=== PATIENT | male | born 1965 | race Caucasian/White ===

== ENCOUNTER 2019-08-07 16:09 | Observation (INO) ==
[2019-08-07] MEDS ORDERED: PANTOprazole 40 MG TAB PO STA (16:22)
[2019-08-07] MEDS ORDERED: FAMOTIDINE 20MG IV PUSH 20 MG/5 ML SYR IV STA (16:22)
[2019-08-07] MEDS ORDERED: SODIUM CHLORIDE 0.9% 500 ML IV SCH (16:30)
--- NOTE | 2019-08-07 17:22 | XRay Report ---
SINGLE VIEW CHEST CLINICAL HISTORY: Generalized weakness. FINDINGS: An AP, portable, upright chest radiograph is obtained. No prior studies are available for c omparison at the time of dictation. The heart is enlarged. The pulmonary vasculature is noncongested . There is mild bibasilar scarring/atelectasis. No airspace consolidation or large pleural effusion i s identified. No pneumothorax is seen. The skeletal structures are osteopenic. The bony thorax is gaye ssly intact. IMPRESSION: Cardiomegaly with no acute cardiopulmonary abnormality. ACT 112: Negative or not required by law. Electronically signed by: Josef Hills M.D. 08/07/2019 5:20 PM
[2019-08-07 17:29] LABS: Hematocrit (blood only) 20.2 % (42-52); Hemoglobin 6.4 g/dL (14.0-18.0); Mean Corpuscular Hgb Conc 31.7 g/dL (32-36); Mean Corpuscular Volume 72.7 fL (80-100); Mean Platelet Volume 9.3 fL (7.4-10.4); Platelet Count 294 K/uL (130-400); RDW Coefficient of Variation 16.7 % (11.5-14.5); RDW Standard Deviation 44.6 fL (36.4-46.3); Red Blood Count 2.78 M/uL (4.7-6.1); White Blood Count 5.56 K/uL (4.8-10.8)
[2019-08-07 17:41] LABS: Partial Thromboplastin Ratio 0.8; Partial Thromboplastin Time 22.7 Seconds (21.0-31.0); Prothrombin Time 10.3 Seconds (9.0-12.0)
[2019-08-07 17:45] LABS: Alanine Aminotransferase 41 U/L (12-78); Albumin Level 4.4 gm/dl (3.4-5.0); Aspartate Aminotransferase 28 U/L (15-37); BUN Creatinine Ratio 11.1 (10-20); Blood Urea Nitrogen 13 mg/dl (7-18); Calcium 9.6 mg/dl (8.5-10.1); Carbon Dioxide 22 mmol/L (21-32); Chloride 105 mmol/L (98-107); Creatinine Clr Calc Pharmacy 88.5 ml/min; Est GFR (African American) 78.4; Est GFR (Non-African American) 67.7; Glucose 184 mg/dl (70-99); Lipase 284 U/L (73-393); Potassium 3.6 mmol/L (3.5-5.1); Sodium 136 mmol/L (136-145)
[2019-08-07] MEDS ORDERED: SODIUM CHLORIDE 0.9% 250 ML IV PRN (17:47)
[2019-08-07 17:48] LABS: Basophils # (auto) 0.04 K/uL (0-0.2); Basophils % (auto) 0.7 %; Eosinophils % (auto) 1.8 %; Lymphocytes # (auto) 0.92 K/uL (1.2-3.4); Lymphocytes % (auto) 16.5 %; Microcytosis Present; Monocytes % (auto) 7.2 %; Neutrophils % (auto) 73.8 %; Polychromasia 1+; Reticulocyte % 2.5 % (0.5-2.0); Reticulocytes # 0.07 10^6/uL (0.02-0.10)
[2019-08-07 17:50] LABS: Albumin Globulin Ratio 1.2 (0.9-2); Alkaline Phosphatase 72 U/L (45-117); Bilirubin,Total 0.4 mg/dl (0.2-1); Globulin 3.7 gm/dl (2.5-4.0); Total Protein 8.1 gm/dl (6.4-8.2); Troponin I < 0.015 ng/ml (0-0.045)
[2019-08-07] MEDS ORDERED: IOVERSOL 100ml IV PRN (18:00)
[2019-08-07 18:07] LABS: Appearance Urine Clear (Clear); Bilirubin Urine Negative (Negative); Blood Urine Negative (Negative); Color Urine Yellow; Glucose Urine UA Negative (Negative); Ketones Urine Negative (Negative); Leukocyte Esterase Urine Negative (Negative); Nitrite Urine Negative (Negative); Protein Urine Negative (Negative); Specific Gravity Urine 1.011 (1.000-1.030); Urobilinogen Urine Negative (Negative)
--- NOTE | 2019-08-07 18:26 | CT Scan Report ---
CT SCAN OF THE ABDOMEN AND PELVIS WITH IV CONTRAST CLINICAL HISTORY: GI bleeding. Anemia. Dyspnea. COMPARISON STUDY: No priors. TECHNIQUE: Following the IV administration of 94 cc of Optiray 320, CT scan of the abdomen and pelvi s is performed from the lung bases to the proximal femora. Images are reviewed in the axial, sagittal , and coronal planes. IV contrast was administered without complication. A dose lowering technique wa s utilized adhering to the principles of ALARA. CT DOSE: 1095.73 mGy.cm FINDINGS: Lung bases: The heart is normal in size and without pericardial effusion. A calcified granuloma seen at the right lung base. The lung bases are otherwise clear. Liver: The contrast-enhanced liver is enlarged measuring 19.3 cm in length. The liver demonstrates di ffusely diminished attenuation consistent with hepatic steatosis. Fatty sparing is seen adjacent to g allbladder fossa. There is no intrahepatic biliary ductal dilatation. The hepatic veins and portal ve ins are patent. Gallbladder: Unremarkable. Spleen: The spleen is mildly enlarged measuring 14.3 cm in length. Pancreas: Unremarkable. Adrenal glands: Unremarkable. Kidneys: The contrast enhanced kidneys are normal in size and without hydronephrosis. The kidneys enh ance symmetrically. A subcentimeter cortical hypodensity in the right lower pole likely represents a cyst but is too small for definitive characterization. Abdominal vasculature: The abdominal aorta is normal in course and caliber noting mild atheroscleroti c calcification. Bowel: There is mild colonic fecal retention. No bowel obstruction is seen. The appendix is well-vis ualized and normal. Peritoneum: There is no intraperitoneal free air or abdominal ascites. Lymphadenopathy: None. Pelvic viscera: The bladder, prostate, and seminal vesicles are normal as imaged. Skeletal structures: No lytic or blastic lesions are seen. There are healed right-sided rib fractures . IMPRESSION: 1. There are no acute infectious or inflammatory findings in the abdomen or pelvis. 2. Hepatomegaly and hepatic steatosis. 3. Splenomegaly. ACT 112: Negative or not required by law. Electronically signed by: Josef Hills M.D. 08/07/2019 6:25 PM
[2019-08-07] MEDS ORDERED: PANTOprazole 80 MG in DEXTROSE 5% 100 ML IV STA (18:37)
--- NOTE | 2019-08-07 19:04 | History & Physical Report ---
Date of Service August 07, 2019 Assessment & Plan (1) Anemia: (2) GI bleed: -Admit to [facility] with telemetry -Patient presenting by referral of PCP for evaluation of anemia -Patient reports 3-4 episodes of black stools about 2 weeks ago; no further since -In ED, Hgb found to be 6.4, heme positive stools -Mildly tachycardic however otherwise hemodynamically stable -Minimal NSAID use -Colonoscopy 10/2017: Sigmoid diverticulosis, transverse colon polyp with pathology showing tubovillous adenoma -one-year follow-up was recommended however patient did not complete due to transportation issues -Transfuse 2 unit PRBC -PPI bolus and drip -Case discussed with GI; plan for EGD tomorrow along with colonoscopy given history of high risk polyp (3) DM type 2 (diabetes mellitus, type 2): -Hgb A1c 7.0 08/01/19 -Hold metformin and utilize NovoLog per protocol while hospitalized (4) DVT prophylaxis: -SCDs due to GI bleeding History of Present Illness Chief Complaint: Sent by PCP for evaluation of anemia Primary Care Provider: Chepe Navas DO 54-year-old male who presents the ED by referral PCP for evaluation of anemia. Patient reports that 2 weeks ago, noted he was having heart palpitations and shortness of breath with minimal exertion. At that same time, he had 3-4 episodes of black stools. Stools were formed. No further episodes since then. Patient had outpatient labs drawn on 08/01 showing hemoglobin of 7.1. Patient was notified today and referred to the ED for further evaluation. Patient denies any abdominal pain, nausea, vomiting. No fevers or chills. A couple of weeks ago, he took 1 dose of indomethacin and 2 aspirin. Patient denies chest pain. Has had some lightheadedness but denies any syncopal event. He denies any urinary symptoms. In the ED, hemoglobin is found to be 6.4. Stools are heme positive. Patient is mildly tachycardic however otherwise hemodynamically stable. He was given IVF, IV famotidine, p.o. Protonix. Allergies Allergy/AdvReac Type Severity Reaction Status Date / Time bee venom protein (honey bee) Allergy Severe ANAPHYLAXIS Verified 08/07/19 16:46 Home Medications Home Medications Medication Instructions Recorded Confirmed Type gemfibrozil 600 mg PO BID 08/07/19 08/07/19 History indomethacin 50 mg PO TID PRN 08/07/19 08/07/19 History metformin 1,000 mg PO BID 08/07/19 08/07/19 History multivitamin 1 tab PO DAILY 08/07/19 08/07/19 History omeprazole 20 mg PO DAILY 08/07/19 08/07/19 History Past Med/Surg History Medical History DM type 2 (diabetes mellitus, type 2) GERD (gastroesophageal reflux disease) Gout Hyperlipidemia Surgical History Hx of colonoscopy 10/2017 -diverticulosis throughout sigmoid colon, polyp removed from transve rse colon with pathology showing tubovillous adenoma -one-year follow-up recommended Family History (Updated 08/07/19 @ 18:54 by DANILO Freeman) Father Heart disease Social History Preferred Language: Wolof Communication Ability: Effective 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 Beliefs That Will Affect Care: None Current Living Situation: Alone Other Information That Helps Us Care for You: No Feels Safe at Home: Yes Safety Concerns: Feels Safe At This Time Smoking Status: Current every day smoker Tobacco Type: smokeless tobacco ; Do You Dip or Chew Tobacco: Yes ; Second Hand Exposure: No ; Tobacco Cessation Education Requested by Patient: No Hx Alcohol Use: No Review of Systems Review of Systems: ROS per HPI, all other systems reviewed and negative Physical Exam Constitutional: WD/WN, vitals as above Eyes: PERRL, conjunctivae normal, anicteric sclerae ENMT: external ear and nose normal, oropharynx normal Respiratory: normal respiratory effort, lungs clear to auscultation Cardiovascular: Rate/Rhythm: regular rhythm and + tachycardic (Heart rate low 100s) Vessels: normal peripheral pulses Extremities: no edema Gastrointestinal (Abdomen): normal bowel sounds, soft, nontender, no hepatosplenomegaly Musculoskeletal: no cyanosis or clubbing, extremities motor strength 5/5 Skin: no rashes, warm and dry + pallor Neurologic: PERRL, EOMI, accommodation nl, no face palsy, no dysarthria Psychiatric: A+Ox3, euthymic affect Results & Data Vital Signs (Past 12 Hours) Vital Signs Temp Pulse Pulse Resp BP BP Pulse Ox 08/07/19 17:53 102 H 22 164/92 H 96 08/07/19 17:52 102 H 22 96 08/07/19 16:15 37.3 C 101 H 16 148/93 H 99 Laboratory Results Short CBC 08/07/19 Range/Units 17:04 WBC 5.56 (4.8-10.8) K/uL Hgb 6.4 L* (14.0-18.0) g/dL Hct 20.2 L* (42-52) % Plt Count 294 (130-400) K/uL BMP 08/07/19 17:04 Sodium 136 Potassium 3.6 Chloride 105 Carbon Dioxide 22 BUN 13 Creatinine 1.20 Glucose 184 H Calcium 9.6 Cardiac Enzymes 08/07/19 Range/Units 17:04 Troponin I < 0.015 (0-0.045) ng/ml Liver Function 08/07/19 Range/Units 17:04 Total Bilirubin 0.4 (0.2-1) mg/dl AST 28 (15-37) U/L ALT 41 (12-78) U/L Alkaline Phosphatase 72 (45-117) U/L Albumin 4.4 (3.4-5.0) gm/dl Urine 08/07/19 Range/Units 17:55 Urine Color Yellow Urine Appearance Clear (Clear) Urine pH 5.0 (4.5-7.5) Ur Specific [place] 1.011 (1.000-1.030) Urine Protein Negative (Negative) Urine Glucose (UA) Negative (Negative) Diagnostic Findings CT ABD/PELVIS IMPRESSION: 1. There are no acute infectious or inflammatory findings in the abdomen or pelvis. 2. Hepatomegaly and hepatic steatosis. 3. Splenomegaly. CXR IMPRESSION: Cardiomegaly with no acute cardiopulmonary abnormality. Code Status & VTE Plan VTE Prophylaxis Plan VTE Prophylaxis will be ordered: Yes Supervising Physician Co-Signing Physician Notes Attending Addendum: The patient wsa seen and examined in ER. He has been complaining of black stool for about 1 week about 2 weeks before Very minimal intake of NSAID is prior to this events No more bloody stool but was sent in from doctor's office following hemoglobin noted to be around 7 Denies any significant symptoms except weakness On examination He looks pale without any distress Hemodynamically stable Chest-clear to auscultate bilaterally Heart-S1-S2, no murmur Abdomen-benign Extremities-trace edema bilaterally Admission labs and imaging studies reviewed Has probable upper GI bleed doubt any significant lower GI bleed with hemoglobin less than 7 We will get blood transfusions and possible endoscopy tomorrow 08/08/2019 Agree with assessment plan as outlined above by Kimberli Oleary (1) GI bleed GI bleed type/associated pathology: unspecified gastrointestinal hemorrhage type Qualified Code(s): K92.2 - Gastrointestinal hemorrhage, unspecified (2) Anemia Anemia type: unspecified type Qualified Code(s): D64.9 - Anemia, unspecified
[2019-08-07] MEDS ORDERED: CARBOHYDRATES FOR HYPOGLYCEMIA PO PRN (20:02)
[2019-08-07] MEDS ORDERED: GLUCOSE 40% GEL 15 GM TUBE PO PRN (20:02)
[2019-08-07] MEDS ORDERED: GLUCAGON FOR INJ 1 MG VIAL SQ PRN (20:02)
[2019-08-07] MEDS ORDERED: ACETAMINOPHEN 325 MG TAB PO PRN (20:02)
[2019-08-07] MEDS ORDERED: DEXTROSE 50% 50 ML SYRINGE IV PRN (20:02)
[2019-08-07] MEDS ORDERED: GLUCOSE 10 TABS/TUBE PO PRN (20:02)
[2019-08-07] MEDS ORDERED: bisacodyL 5 MG TABEC PO ONE (20:30)
[2019-08-07] MEDS: SODIUM CHLORIDE 0.9% 1000ML 1,000 ML IV SCH (20:32)
--- NOTE | 2019-08-07 20:53 | Emergency Department Note ---
Entered by Raeann Martell acting as a scribe for Jose Beaver DO History of Present Illness General Chief complaint: Abnormal Labs/Diagnostic Testing Stated complaint: ABNORMAL LABS, SEVERE ANEMIA, TIRED, WEAK Time Seen by Provider: 08/07/19 16:20 Source: patient History of Present Illness Onset (ago): day(s) 10 Location: upper extremity and lower extremity Severity: severe (anemia) Quality: + other (abnormal labs) Associated symptoms: + shortness of breath (only when walking short distances) and + other (Positive dark stools (resolved), extreme fatigue. Negative abdominal pain, previous blood transfusions) The patient is a 54 year old male who presents to the ED with complaints of abnormal labs. He states his blood work showed severe anemia, so his doctor referred him to the ED. He reports 10 days ago, he ate popcorn and then had a BM that was very dark in color. He states after a few BMs, his stools returned to normal. He reports over the past couple days, he has felt extremely fatigued. He notes he is beginning to feel better. The patient states he becomes very short of breath when he walks a short distance however, when he goes on his normal 2 miles walks, he does not feel any SOB. He denies any abdominal pain, previous blood transfusions. Home Medications Home Medications Medication Instructions Recorded Confirmed Type gemfibrozil 600 mg PO BID 08/07/19 08/07/19 History indomethacin 50 mg PO TID PRN 08/07/19 08/07/19 History metformin 1,000 mg PO BID 08/07/19 08/07/19 History multivitamin 1 tab PO DAILY 08/07/19 08/07/19 History omeprazole 20 mg PO DAILY 08/07/19 08/07/19 History Allergies Allergy/AdvReac Type Severity Reaction Status Date / Time bee venom protein (honey bee) Allergy Severe ANAPHYLAXIS Verified 08/07/19 16:46 Past Med/Surg History Medical History DM type 2 (diabetes mellitus, type 2) GERD (gastroesophageal reflux disease) Gout Hyperlipidemia Surgical History Hx of colonoscopy 10/2017 -diverticulosis throughout sigmoid colon, polyp removed from transverse colon with pathology showing tubovillous adenoma -one-year follow- up recommended Family History (Updated 08/07/19 @ 18:54 by DANILO Freeman) Father Heart disease Social History Preferred Language: Faroese Communication Ability: Effective Granite Cutter Required: No Beliefs That Will Affect Care: None Current Living Situation: Alone Other Information That Helps Us Care for You: No Feels Safe at Home: Yes Safety Concerns: Feels Safe At This Time Smoking Status: Current every day smoker Tobacco Type: smokeless tobacco ; Do You Dip or Chew Tobacco: Yes ; Second Hand Exposure: No ; Tobacco Cessation Education Requested by Patient: No Hx Alcohol Use: No Review of Systems See HPI for pertinent positives & negatives. and A total of 10 systems reviewed and were otherwise negative Physical Exam Vital Signs Vital Signs - 24 hr 08/07/19 16:15 08/07/19 17:52 08/07/19 17:53 Temperature 37.3 C Temperature Source Oral Pulse Rate 101 H 102 H Pulse Rate [Right Finger] 102 H Respiratory Rate 16 22 22 Respiratory Effort / Characteristics Non-Labored Spontaneous Respiratory Depth Normal Blood Pressure 148/93 H Blood Pressure [Right Arm] 164/92 H Blood Pressure Mean 111 Blood Pressure Mean [Right Arm] 116 Blood Pressure Position Sitting Pulse Oximetry 99 96 96 Oxygen Delivery Method Room Air Room Air Room Air Sepsis Recent Fever Within 48 Hours No Sepsis New/Unexplained Change in Mental Status No Sepsis Action Taken by Nursing No Action Required GENERAL: Patient is awake, alert, and in no acute distress.Patient is resting comfortably and showing no signs of anxiety EYES: The conjunctivae are clear. The pupils are round and reactive. EARS, NOSE, MOUTH AND THROAT: The nose is without any evidence of any deformity. Mucous membranes are moist.Tongue is midline NECK: The neck is nontender and supple. RESPIRATORY: Normal respiratory effort is noted. There is no evidence of wheezing rhonchi or rales to auscultation. CARDIOVASCULAR: Regular rate and rhythm noted. There no murmurs rubs or gallops normal S1 normal S2 GASTROINTESTINAL: The abdomen is mildly distended and diffusely tender. No guarding or rigidity RECTAL: Heme positive stool MUSCULOSKELETAL/EXTREMITIES: There is no evidence of gross deformity. Full range of motion is noted in the hips and shoulders. SKIN: There is no obvious evidence of any rash. There are no petechiae, pallor or cyanosis noted. Cool, pale, and dry. Trace pedal edema bilaterally. NEUROLOGIC: Patient is awake alert and oriented x3. Course Course 1621: Past medical records reviewed. The patient was evaluated in room C7. A complete history and physical exam was performed. 1817: I consented him for blood at this time. 1800: Discussed the patient's case with Morris Freeman. The patient will be evaluated by Morris Cheney Hospitalist for further management. Administered Medications Sodium Chloride (Nss 1000ml) 1,000 mls @ 100 mls/hr IV .Q10H DOUGLAS Stop: 09/06/19 20:01 Last Admin: 08/07/19 20:32 Dose: 100 mls/hr Documented by: [id number] Discontinued Medications Sodium Chloride (Nss) 500 mls @ 999 mls/hr IV .Q31M DOUGLAS Stop: 08/07/19 17:00 Last Infusion: 08/07/19 19:41 Dose: 0 mls/hr Documented by: [id number] Admin: 08/07/19 17:06 Dose: 999 mls/hr Documented by: [id number] Famotidine (Pepcid 20mg Iv Push) 20 mg in 5 mls @ 2.5 mls/min IV NOW STA Stop: 08/07/19 16:23 Last Admin: 08/07/19 17:06 Dose: 2.5 mls/min Documented by: [id number] Pantoprazole Sodium 80 mg/ (Dextrose) 120 mls @ 480 mls/hr IV NOW STA Stop: 08/07/19 18:51 Last Admin: 08/07/19 20:32 Dose: 480 mls/hr Documented by: [id number] Ioversol (Optiray 320 100ml) 94 ml IV ONCE PRN PRN Reason: Interaction Checking Stop: 08/11/19 17:59 Last Admin: 08/07/19 18:00 Dose: 94 ml Documented by: [id number] Pantoprazole Sodium (Protonix) 40 mg PO NOW STA Stop: 08/07/19 16:23 Last Admin: 08/07/19 17:03 Dose: 40 mg Documented by: [id number] Critical Care Time Critical Care Time: Yes Total Critical Care Time: 60 I have personally spent approximately 60 minutes of critical care time in the direct management of this patient. This includes bedside care, interpretation of diagnostic studies, and testing, discussion with consultants, patient, and family members, and other required patient management activities. This approximately 60 minutes is in excess of all separately billable procedures. Medical Decision Making Differential Diagnosis Differential diagnosis: Etiologies such as metabolic, infection, hypo/hyperglycemia, electrolyte abnormalities, cardiac sources, intracerebral event, toxicologic, neurologic, as well as others were entertained. Medical Records Attestation: I reviewed the patient's medical records. Home Medications Current Medication List: was personally reviewed by me Laboratory Data Result diagrams: 08/07/19 17:04 08/07/19 17:04 Lab Results 08/07/19 08/07/19 08/07/19 Range/Units 17: 17: 17:04 WBC 5.56 (4.8-10.8) K/uL RBC 2.78 L (4.7-6.1) M/uL Hgb 6.4 L* (14.0-18.0) g/dL Hct 20.2 L* (42-52) % MCV 72.7 L (80-100) fL MCH 23.0 L (25-34) pg MCHC 31.7 L (32-36) g/dL RDW Std Deviation 44.6 (36.4-46.3) fL RDW Coeff of Carlos Alberto 16.7 H (11.5-14.5) % Plt Count 294 (130-400) K/uL MPV 9.3 (7.4-10.4) fL Immature Gran % (Auto) 0.0 % Neut % (Auto) 73.8 % Lymph % (Auto) 16.5 % Braxton % (Auto) 7.2 % Eos % (Auto) 1.8 % Baso % (Auto) 0.7 % Reticulocyte % (Auto) 2.5 H (0.5-2.0) % Immature Gran # (Auto) 0.00 (0.00-0.02) K/uL Neut # (Auto) 4.10 (1.4-6.5) K/uL Lymph # (Auto) 0.92 L (1.2-3.4) K/uL Braxton # (Auto) 0.40 (0.11-0.59) K/uL Eos # (Auto) 0.10 (0-0.5) K/uL Baso # (Auto) 0.04 (0-0.2) K/uL Reticulocyte # 0.07 (0.02-0.10) 10^6/uL Polychromasia 1+ Microcytosis Present PT 10.3 (9.0-12.0) Seconds INR 1.0 (0.9-1.1) APTT 22.7 (21.0-31.0) Seconds PTT Ratio 0.8 Sodium 136 (136-145) mmol/L Potassium 3.6 (3.5-5.1) mmol/L Chloride 105 (98-107) mmol/L Carbon Dioxide 22 (21-32) mmol/L Anion Gap 9.0 (3-11) BUN 13 (7-18) mg/dl Creatinine 1.20 (0.6-1.4) mg/dl POC Creatinine (0.6-1.3) mg/dl Est Cr Clr Drug Dosing 88.5 ml/min Est GFR ( Amer) 78.4 Est GFR (Non-Af Amer) 67.7 BUN/Creatinine Ratio 11.1 (10-20) Glucose 184 H (70-99) mg/dl Calcium 9.6 (8.5-10.1) mg/dl Total Bilirubin 0.4 (0.2-1) mg/dl AST 28 (15-37) U/L ALT 41 (12-78) U/L Alkaline Phosphatase 72 (45-117) U/L Troponin I < 0.015 (0-0.045) ng/ml Total Protein 8.1 (6.4-8.2) gm/dl Albumin 4.4 (3.4-5.0) gm/dl Globulin 3.7 (2.5-4.0) gm/dl Albumin/Globulin Ratio 1.2 (0.9-2) Lipase 284 (73-393) U/L Urine Color Urine Appearance (Clear) Urine pH (4.5-7.5) Ur Specific [place] (1.000-1.030) Urine Protein (Negative) Urine Glucose (UA) (Negative) Urine Ketones (Negative) Urine Blood (Negative) Urine Nitrite (Negative) Urine Bilirubin (Negative) Urine Urobilinogen (Negative) Ur Leukocyte Esterase (Negative) Blood Type Blood Type Recheck Antibody Screen Crossmatch 08/07/19 08/07/19 08/07/19 Range/Units 17:04 17:11 17:55 WBC (4.8-10.8) K/uL RBC (4.7-6.1) M/uL Hgb (14.0-18.0) g/dL Hct (42-52) % MCV (80-100) fL MCH (25-34) pg MCHC (32-36) g/dL RDW Std Deviation (36.4-46.3) fL RDW Coeff of Carlos Alberto (11.5-14.5) % Plt Count (130-400) K/uL MPV (7.4-10.4) fL Immature Gran % (Auto) % Neut % (Auto) % Lymph % (Auto) % Braxton % (Auto) % Eos % (Auto) % Baso % (Auto) % Reticulocyte % (Auto) (0.5-2.0) % Immature Gran # (Auto) (0.00-0.02) K/uL Neut # (Auto) (1.4-6.5) K/uL Lymph # (Auto) (1.2-3.4) K/uL Braxton # (Auto) (0.11-0.59) K/uL Eos # (Auto) (0-0.5) K/uL Baso # (Auto) (0-0.2) K/uL Reticulocyte # (0.02-0.10) 10^6/uL Polychromasia Microcytosis PT (9.0-12.0) Seconds INR (0.9-1.1) APTT (21.0-31.0) Seconds PTT Ratio Sodium (136-145) mmol/L Potassium (3.5-5.1) mmol/L Chloride (98-107) mmol/L Carbon Dioxide (21-32) mmol/L Anion Gap (3-11) BUN (7-18) mg/dl Creatinine (0.6-1.4) mg/dl POC Creatinine 1.1 (0.6-1.3) mg/dl Est Cr Clr Drug Dosing ml/min Est GFR ( Amer) Est GFR (Non-Af Amer) BUN/Creatinine Ratio (10-20) Glucose (70-99) mg/dl Calcium (8.5-10.1) mg/dl Total Bilirubin (0.2-1) mg/dl AST (15-37) U/L ALT (12-78) U/L Alkaline Phosphatase (45-117) U/L Troponin I (0-0.045) ng/ml Total Protein (6.4-8.2) gm/dl Albumin (3.4-5.0) gm/dl Globulin (2.5-4.0) gm/dl Albumin/Globulin Ratio (0.9-2) Lipase (73-393) U/L Urine Color Yellow Urine Appearance Clear (Clear) Urine pH 5.0 (4.5-7.5) Ur Specific [place] 1.011 (1.000-1.030) Urine Protein Negative (Negative) Urine Glucose (UA) Negative (Negative) Urine Ketones Negative (Negative) Urine Blood Negative (Negative) Urine Nitrite Negative (Negative) Urine Bilirubin Negative (Negative) Urine Urobilinogen Negative (Negative) Ur Leukocyte Esterase Negative (Negative) Blood Type A Negative Blood Type Recheck Antibody Screen NEGATIVE Crossmatch See Detail 08/07/19 Range/Units 18:23 WBC (4.8-10.8) K/uL RBC (4.7-6.1) M/uL Hgb (14.0-18.0) g/dL Hct (42-52) % MCV (80-100) fL MCH (25-34) pg MCHC (32-36) g/dL RDW Std Deviation (36.4-46.3) fL RDW Coeff of Carlos Alberto (11.5-14.5) % Plt Count (130-400) K/uL MPV (7.4-10.4) fL Immature Gran % (Auto) % Neut % (Auto) % Lymph % (Auto) % Braxton % (Auto) % Eos % (Auto) % Baso % (Auto) % Reticulocyte % (Auto) (0.5-2.0) % Immature Gran # (Auto) (0.00-0.02) K/uL Neut # (Auto) (1.4-6.5) K/uL Lymph # (Auto) (1.2-3.4) K/uL Braxton # (Auto) (0.11-0.59) K/uL Eos # (Auto) (0-0.5) K/uL Baso # (Auto) (0-0.2) K/uL Reticulocyte # (0.02-0.10) 10^6/uL Polychromasia Microcytosis PT (9.0-12.0) Seconds INR (0.9-1.1) APTT (21.0-31.0) Seconds PTT Ratio Sodium (136-145) mmol/L Potassium (3.5-5.1) mmol/L Chloride (98-107) mmol/L Carbon Dioxide (21-32) mmol/L Anion Gap (3-11) BUN (7-18) mg/dl Creatinine (0.6-1.4) mg/dl POC Creatinine (0.6-1.3) mg/dl Est Cr Clr Drug Dosing ml/min Est GFR ( Amer) Est GFR (Non-Af Amer) BUN/Creatinine Ratio (10-20) Glucose (70-99) mg/dl Calcium (8.5-10.1) mg/dl Total Bilirubin (0.2-1) mg/dl AST (15-37) U/L ALT (12-78) U/L Alkaline Phosphatase (45-117) U/L Troponin I (0-0.045) ng/ml Total Protein (6.4-8.2) gm/dl Albumin (3.4-5.0) gm/dl Globulin (2.5-4.0) gm/dl Albumin/Globulin Ratio (0.9-2) Lipase (73-393) U/L Urine Color Urine Appearance (Clear) Urine pH (4.5-7.5) Ur Specific [place] (1.000-1.030) Urine Protein (Negative) Urine Glucose (UA) (Negative) Urine Ketones (Negative) Urine Blood (Negative) Urine Nitrite (Negative) Urine Bilirubin (Negative) Urine Urobilinogen (Negative) Ur Leukocyte Esterase (Negative) Blood Type Blood Type Recheck A Negative Antibody Screen Crossmatch Imaging Data Radiologist's Impression: Radiology results as stated below per my review and the radiologist's interpretation: SINGLE VIEW CHEST CLINICAL HISTORY: Generalized weakness. FINDINGS: An AP, portable, upright chest radiograph is obtained. No prior studies are available for comparison at the time of dictation. The heart is enlarged. The pulmonary vasculature is noncongested. There is mild bibasilar scarring/atelectasis. No airspace consolidation or large pleural effusion is identified. No pneumothorax is seen. The skeletal structures are osteopenic. The bony thorax is grossly intact. IMPRESSION: Cardiomegaly with no acute cardiopulmonary abnormality. ACT 112: Negative or not required by law. Electronically signed by: Josef Hills M.D. 08/07/2019 5:[address] SCAN OF THE ABDOMEN AND PELVIS WITH IV CONTRAST CLINICAL HISTORY: GI bleeding. Anemia. Dyspnea. COMPARISON STUDY: No priors. TECHNIQUE: Following the IV administration of 94 cc of Optiray 320, CT scan of the abdomen and pelvis is performed from the lung bases to the proximal femora. Images are reviewed in the axial, sagittal, and coronal planes. IV contrast was administered without complication. A dose lowering technique was utilized adhering to the principles of ALARA. CT DOSE: 1095.73 mGy.cm FINDINGS: Lung bases: The heart is normal in size and without pericardial effusion. A calcified granuloma seen at the right lung base. The lung bases are otherwise clear. Liver: The contrast-enhanced liver is enlarged measuring 19.3 cm in length. The liver demonstrates diffusely diminished attenuation consistent with hepatic steatosis. Fatty sparing is seen adjacent to gallbladder fossa. There is no intrahepatic biliary ductal dilatation. The hepatic veins and portal veins are patent. Gallbladder: Unremarkable. Spleen: The spleen is mildly enlarged measuring 14.3 cm in length. Pancreas: Unremarkable. Adrenal glands: Unremarkable. Kidneys: The contrast enhanced kidneys are normal in size and without hydronephrosis. The kidneys enhance symmetrically. A subcentimeter cortical hyp odensity in the right lower pole likely represents a cyst but is too small for definitive characterization. Abdominal vasculature: The abdominal aorta is normal in course and caliber noting mild atherosclerotic calcification. Bowel: There is mild colonic fecal retention. No bowel obstruction is seen. The appendix is well-visualized and normal. Peritoneum: There is no intraperitoneal free air or abdominal ascites. Lymphadenopathy: None. Pelvic viscera: The bladder, prostate, and seminal vesicles are normal as imaged. Skeletal structures: No lytic or blastic lesions are seen. There are healed right-sided rib fractures. IMPRESSION: 1. There are no acute infectious or inflammatory findings in the abdomen or pelvis. 2. Hepatomegaly and hepatic steatosis. 3. Splenomegaly. ACT 112: Negative or not required by law. Electronically signed by: Josef Hills M.D. 08/07/2019 6:25 PM ECG Data Attestation: I personally reviewed and interpreted this ECG as follows: Indication: + other (abnormal labs) Rate (beats per minute): [address] segments: no ST depression and no ST elevation ECG Findings: no PACs and no PVCs Comparison ECG Date: no prior available Blood Pressure Blood Pressure Findings: Elevated blood pressure Blood Pressure Disposition: further management by hospitalist [facility] Narrative The patient is a 54-year-old male who presented to the emergency department for generalized weakness. The patient has been having symptoms of generalized weakness over the last 2 weeks. Initially he noticed some upper abdominal pain with dark stools. He went to see his primary care physician last week and had laboratory studies obtained. He was found to have significant anemia. He had continued symptoms and today he called his primary care physician and was sent to the emergency department. I discussed the patient's laboratory and radiographic studies with him. I did order a blood transfusion on the patient. I did consent the patient for blood transfusion. I discussed the patient's laboratory and radiographic studies with the on-call [facility] [address] [facility] hospitalist group. They have agreed to evaluate the patient in the emergency department for further management disposition. The patient no longer had melena but his stool was heme positive. It is possible he may have an upper GI bleed which is still healing but not acute. Given the patient's severe anemia and symptoms at this time I do recommend inpatient management for this likely upper GI bleed with sym ptomatic anemia. The patient was agreeable to this plan at this time. Impression & Plan Anemia, GI bleed, Weakness Discharge Plan Visit Data *Final* Discharge Date/Time: 08/07/19 19:35 Chief Complaint: Abnormal Labs/Diagnostic Testing Stated Complaint: ABNORMAL LABS, SEVERE ANEMIA, TIRED, WEAK ED Provider: Jose Beaver Discharge Problem: Anemia, GI bleed, Weakness Patient Disposition: Admitted As Inpatient Discharge Instructions Interventions: ED Discharge Assessment Last Done: 08/07/19 19:35 Discharge Problem: Anemia Qualifiers: Anemia type: unspecified type Qualified Code(s): D64.9 - Anemia, unspecified GI bleed Qualifiers: GI bleed type/associated pathology: unspecified gastrointestinal hemorrhage type Qualified Code(s): K92.2 - Gastrointestinal hemorrhage, unspecified The scribe's documentation has been prepared under my direction and personally reviewed by me in its entirety. I confirm that the note above accurately reflects all work, treatment, procedures, and medical decision making performed by me.
[2019-08-07] MEDS ORDERED: INSULIN ASPART 100 UNITS/ML 3 ML PEN SC SCH (21:00)
[2019-08-07] MEDS ORDERED: LAVAGE SOLUTION 4000ML PO SCH (21:00)
[2019-08-07] MEDS: PANTOprazole 40 MG in DEXTROSE 5% 100 ML IV SCH (21:04)
[2019-08-07] MEDS ORDERED: Nursing to Pharmacy Communication ONE (21:47)
[2019-08-07] MEDS: INSULIN ASPART 100 UNITS/ML 3 ML PEN SC SCH (23:47)
[2019-08-08] MEDS: PANTOprazole 40 MG in DEXTROSE 5% 100 ML IV SCH ×3 (01:11→10:14)
[2019-08-08] MEDS ORDERED: Nursing to Pharmacy Communication ONE (03:59)
[2019-08-08 05:39] LABS: Hematocrit (blood only) 23.4 % (42-52); Hemoglobin 7.7 g/dL (14.0-18.0); Mean Corpuscular Hgb Conc 32.9 g/dL (32-36); Mean Platelet Volume 8.7 fL (7.4-10.4); Platelet Count 229 K/uL (130-400); RDW Coefficient of Variation 18.3 % (11.5-14.5); RDW Standard Deviation 52.2 fL (36.4-46.3); Red Blood Count 3.08 M/uL (4.7-6.1)
[2019-08-08 06:20] LABS: BUN Creatinine Ratio 8.8 (10-20); Calcium 8.6 mg/dl (8.5-10.1); Creatinine Clr Calc Pharmacy 103.3 ml/min; Est GFR (African American) 95.5; Est GFR (Non-African American) 82.4; Potassium 3.4 mmol/L (3.5-5.1)
[2019-08-08] MEDS: INSULIN ASPART 100 UNITS/ML 3 ML PEN SC SCH ×2 (06:20→12:41)
--- NOTE | 2019-08-08 08:09 | Gastrointestinal Consultation ---
Date of Consultation August 08, 2019 Assessment & Plan (1) Anemia: Mr. Mehdi Wisdom is a 54 yr old male with symptomatic anemia. 1. Agree with Pantoprazole drip and NPO, please continue. 2. Plan for EGD and colonoscopy this morning. 3. Further recommendations to follow endoscopy. Present on Admission?: Yes Supervising Physician Co-Signing Physician Notes Patient was personally seen and examined with DANILO Simms. Her note reflects my exam and findings. I agree with her impression and plan. After evaluating the patient, I have determined that an upper and lower endoscopy would be helpful to determine source of bleeding and look for high risk lesions. Charles Candelario M.D. History of Present Illness Reason for Consultation: anemia, ? UGIB Requesting Physician: Kimberli Pritchard NP/Dr. Griffith Attending Physician: Hai Griffith, DO History of Present Illness Mr. Mehdi Wisdom is a 54-year-old male patient of Dr. Navas with a hx of DM type 2 , GERD, Gout, Hyperlipidemia who presented to his primary care provider on 08/01/2019 for palpitations and shortness of breath, also with reports of black BMs. Hemoglobin at that time was 7.1. He was notified and presented to [facility] ED as directed for evaluation of anemia yesterday. On arrival at [facility], Hb 6.4 +2 units of RBCs->7.7 this morning. BUN/Cr have been normal. CT abdomen pelvis with IV no oral contrast did not show any abnormalities. The pt is seen and examined. He was initially sleeping was but arousible and awake, alert, oriented. About 10 days ago, he took one dose of Indomethacin for gout and soon passed formed, black bowel movements 1-2/day for a few days. The BMs changed back to brown since then, still formed. At the time of the melena, he also had palpitations and mild exertional SOB but did not have any dizziness, weakness, abdominal pain, nausea, vomiting, or bright red blood in BMs. On exam, his abdomen is soft, non distended. He is mildly hypertensive and hemodynamically stable. He is on a pantoprazole drip. He is also maintained on omeprazole 20mg daily for hx of heartburn and has not had recent symptoms. He carries a history of a sigmoid colon tubovillous adenoma in 2018. He tells me that he hasn't undergone the recommended surveillance colonoscopy because he doesn't have a family member or friend that he feels comfortable asking for a ride to the procedure. He has prepped for EGD and colonoscopy and has been kept n.p.o. except prep since midnight. Allergies Allergy/AdvReac Type Severity Reaction Status Date / Time bee venom protein (honey bee) Allergy Severe ANAPHYLAXIS Verified 08/07/19 16:46 Home Medications Home Medications Medication Instructions Recorded Confirmed Type gemfibrozil 600 mg PO BID 08/07/19 08/07/19 History indomethacin 50 mg PO TID PRN 08/07/19 08/07/19 History metformin 1,000 mg PO BID 08/07/19 08/07/19 History multivitamin 1 tab PO DAILY 08/07/19 08/07/19 History omeprazole 20 mg PO DAILY 08/07/19 08/07/19 History Patient History Medical History DM type 2 (diabetes mellitus, type 2) GERD (gastroesophageal reflux disease) Gout Hyperlipidemia Surgical History Hx of colonoscopy 10/2017 -diverticulosis throughout sigmoid colon, polyp removed from t ransverse colon with pathology showing tubovillous adenoma -one-year follow- up recommended Family History Father Heart disease Social History Preferred Language: Bermudian Communication Ability: Effective Cooler Conveyor Loader Required: No Beliefs That Will Affect Care: None Current Living Situation: Alone Other Information That Helps Us Care for You: No Feels Safe at Home: Yes Safety Concerns: Feels Safe At This Time Smoking Status: Current every day smoker Tobacco Type: smokeless tobacco ; Do You Dip or Chew Tobacco: Yes ; Second Hand Exposure: No ; Tobacco Cessation Education Requested by Patient: No Hx Alcohol Use: No Review of Systems Review of Systems: ROS: Gen: Denies weakness, fevers, weight loss Eyes: No eye redness, or pain, no recent vision changes Resp: No SOB, no cough Cardio: See HPI. Today, no palpitations/irregular beats, no chest pain GI: See HPI : Denies pain on urination Skin: No excessive bleeding/bruising, no jaundice, itching or new rashes Physical Exam Constitutional: WD/WN, vitals as above Eyes: PERRL, conjunctivae normal, anicteric sclerae ENMT: external ear and nose normal, oropharynx normal Neck: trachea midline, no thyromegaly Respiratory: normal respiratory effort, lungs clear to auscultation Cardiovascular: RRR, no murmur, no edema Gastrointestinal (Abdomen): normal bowel sounds, soft, nontender, no hepatosplenomegaly Skin: no rashes, warm and dry Neurologic: PERRL, EOMI, accommodation nl, no face palsy, no dysarthria Psychiatric: A+Ox3, euthymic affect Results & Data Vital Signs (Past 12 Hours) Vital Signs Temp Pulse Pulse Resp BP BP BP 08/08/19 07:28 67 08/08/19 07:00 36.8 C 60 18 182/77 H 181/69 H 08/08/19 03:48 36.9 C 73 20 153/99 H 08/08/19 03:05 36.7 C 68 18 179/98 H 08/08/19 02:35 36.9 C 75 18 174/92 H 08/08/19 02:05 36.9 C 73 18 160/95 H 08/08/19 01:50 36.8 C 83 18 154/87 H 08/08/19 01:33 36.9 C 75 20 160/96 H 08/08/19 00:40 36.9 C 72 20 162/90 H 08/08/19 00:31 93 H 08/08/19 00:05 36.7 C 76 20 152/92 H 08/07/19 23:34 36.7 C 75 18 155/92 H 08/07/19 23:04 36.7 C 75 18 167/85 H 08/07/19 22:50 36.9 C 78 20 152/82 H 08/07/19 22:33 36.8 C 81 18 143/85 H 08/07/19 20:13 90 Pulse Ox 08/08/19 07:28 08/08/19 07:00 95 08/08/19 03:48 98 08/08/19 03:05 97 08/08/19 02:35 97 08/08/19 02:05 97 08/08/19 01:50 96 08/08/19 01:33 96 08/08/19 00:40 97 08/08/19 00:31 08/08/19 00:05 98 08/07/19 23:34 98 08/07/19 23:04 98 08/07/19 22:50 97 08/07/19 22:33 96 08/07/19 20:13 Laboratory Results WBC 6, hemoglobin 7, hematocrit 23, platelets 229, sodium 139, potassium 3.4, BUN 9, creatinine 1.02, glucose 127, INR 1.0. Diagnostic Findings CT abd/pelvis with IV, no oral contrast 08/07/19: 1. There are no acute infectious or inflammatory findings in the abdomen or pelvis. 2. Hepatomegaly and hepatic steatosis. 3. Splenomegaly. CXR 08/07/19: Cardiomegaly with no acute cardiopulmonary abnormality. (1) Anemia Anemia type: unspecified type Qualified Code(s): D64.9 - Anemia, unspecified
--- NOTE | 2019-08-08 10:10 | Hospitalist Progress Note ---
Date of Service August 08, 2019 Assessment & Plan (1) Anemia: (2) GI bleed: -Admit to [facility] with telemetry -Patient presenting by referral of PCP for evaluation of anemia -Patient reports 3-4 episodes of black stools about 2 weeks ago; no further since -In ED, Hgb found to be 6.4, heme positive stools -Mildly tachycardic however otherwise hemodynamically stable -Minimal NSAID use -Colonoscopy 10/2017: Sigmoid diverticulosis, transverse colon polyp with pathology showing tubovillous adenoma -one-year follow-up was recommended however patient did not complete due to transportation issues -Transfused 2 unit PRBC -PPI bolus and drip -Case discussed with GI; plan for EGD with colonoscopy today (3) DM type 2 (diabetes mellitus, type 2): -Hgb A1c 7.0 08/01/19 -Hold metformin and utilize NovoLog per protocol while hospitalized (4) DVT prophylaxis: SCDs due to GI bleeding Labs checked ROS-No Headache, No Visual Changes, No Nausea, No Vomiting, No Fever, No Chills, No Neck Pain or Stiffness, No Chest Pain, No Palpitations, No SOB, No GARCIA, No Cough, No Sputum, No Wheezing, No Abdominal Pain, No Diarrhea, No Hematemesis, No Hemoptysis, No Unexpected Weight Loss, No Flank pain, No Melena, No Hematochezia, No Frequency, No Urgency, No Burning, No Hematuria, No Rashes, No Diaphoresis. Appetite is Normal Physical Exam Gen-AAO x 3, NAD, Afebrile Head-NCAT, EOMI, PERRLA, Anicteric Sclera, No Posterior Pharyngeal Erythema Neck-Supple, No JVD, No Thyromegaly, No Masses, No LAD, No Bruits Lungs-Clear to Auscultation Bilaterally, No Rales, No Rhonchi, No Wheezing, No Crepitus Chest-No S4, +S1, +S2, No S3, No Murmurs, No Rubs, No Gallops, No Ectopy Abdomen-Soft, Bowel Sounds Present, Non Tender, Non Distended, No Hepatomegaly, No Splenomegaly, No Palpable Masses, No Rebound, No Rigidity, No Guarding Musculoskeletal-Full Range of Motion Bilaterally, No CVAT Extremities-No Cyanosis, No Clubbing, No Edema Nuero-Cranial Nerves II-XII grossly intact, Motor WNL, DTRs WNL, Strength WNL, Non Focal Psych-Normal Mood Results & Data ([facility]) Vital Signs (Past 12 Hours) Vital Signs Temp Pulse Pulse Resp BP BP BP 08/08/19 07:57 37.0 C 62 18 146/82 H 08/08/19 07:28 67 08/08/19 07:00 36.8 C 60 18 182/77 H 181/69 H 08/08/19 03:48 36.9 C 73 20 153/99 H 08/08/19 03:05 36.7 C 68 18 179/98 H 08/08/19 02:35 36.9 C 75 18 174/92 H 08/08/19 02:05 36.9 C 73 18 160/95 H 08/08/19 01:50 36.8 C 83 18 154/87 H 08/08/19 01:33 36.9 C 75 20 160/96 H 08/08/19 00:40 36.9 C 72 20 162/90 H 08/08/19 00:31 93 H 08/08/19 00:05 36.7 C 76 20 152/92 H 08/07/19 23:34 36.7 C 75 18 155/92 H 08/07/19 23:04 36.7 C 75 18 167/85 H 08/07/19 22:50 36.9 C 78 20 152/82 H 08/07/19 22:33 36.8 C 81 18 143/85 H Pulse Ox 08/08/19 07:57 97 08/08/19 07:28 08/08/19 07:00 95 08/08/19 03:48 98 08/08/19 03:05 97 08/08/19 02:35 97 08/08/19 02:05 97 08/08/19 01:50 96 08/08/19 01:33 96 08/08/19 00:40 97 08/08/19 00:31 08/08/19 00:05 98 08/07/19 23:34 98 08/07/19 23:04 98 08/07/19 22:50 97 08/07/19 22:33 96 (1) Anemia Anemia type: unspecified type Qualified Code(s): D64.9 - Anemia, unspecified (2) GI bleed GI bleed type/associated pathology: unspecified gastrointestinal hemorrhage type Qualified Code(s): K92.2 - Gastrointestinal hemorrhage, unspecified
[2019-08-08] MEDS: SODIUM CHLORIDE 0.9% 1000ML 1,000 ML IV SCH (10:35)
[2019-08-08] MEDS ORDERED: LIDOCAINE HCL 2% 2 ML VIAL/AMP(20MG/ML) INFIL ONE ×2 (10:55→10:57)
[2019-08-08] MEDS ORDERED: PROPOFOL IV EMULSION 10 MG/ML 20 ML VIAL IV ONE (10:55)
--- NOTE | 2019-08-08 11:00 | Anesthesiology Consultation ---
Date of Service August 08, 2019 Assessment & Plan (1) Encounter for pre-operative examination: Chart Review Chart Review: Acceptable Risk for Surgery and Patient NOT seen in Pre Admission Testing Consults Requested none History Surgery Operation Date: 08/08/19 16:00 Proposed Procedures p Colonoscopy EGD Dr Kodak Candelario Height/Weight Height: 6 ft Weight: 108 kg Allergies Allergy/AdvReac Type Severity Reaction Status Date / Time bee venom protein (honey bee) Allergy Severe ANAPHYLAXIS Verified 08/07/19 16:46 Medications Home Medications Medication Instructions Recorded Confirmed Last Taken gemfibrozil 600 mg PO BID 08/07/19 08/07/19 08/07/19 08:00 indomethacin 50 mg PO TID PRN 08/07/19 08/07/19 Unknown metformin 1,000 mg PO BID 08/07/19 08/07/19 08/07/19 08:00 multivitamin 1 tab PO DAILY 08/07/19 08/07/19 08/07/19 omeprazole 20 mg PO DAILY 08/07/19 08/07/19 08/07/19 Active Medications Generic Name Dose Route Start Last Admin Trade Name Freq PRN Reason Stop Dose Admin Pantoprazole Sodium 40 mg/ 100 mls @ 20 mls/hr 08/07/19 19:00 08/08/19 10:14 Dextrose IV 09/06/19 18:59 20 mls/hr Q5H DOUGLAS Administration Sodium Chloride 1,000 mls @ 100 mls/hr 08/07/19 20:02 08/08/19 10:35 Nss 1000ml IV 09/06/19 20:01 100 mls/hr .Q10H DOUGLAS Administration Insulin Aspart 0 units 08/08/19 00:00 08/08/19 06:20 Novolog Flexpen SC 09/07/19 00:00 Not Given Q6 DOUGLAS NPO Date Last Intake of Fluids: 08/08/19 Time Last Intake of Fluids: 09:00 Last Intake of Fluids Comment: completed bowel prep Date Last Intake of Solids: 08/07/19 Time Last Intake of Solids: 14:00 Past Medical History Medical History DM type 2 (diabetes mellitus, type 2) GERD (gastroesophageal reflux disease) Gout Hyperlipidemia Past Family History Family History Father Heart disease Past Surgical History Surgical History Hx of colonoscopy 10/2017 -diverticulosis throughout sigmoid colon, polyp removed from transverse colon with pathology showing tubovillous adenoma -one-year follow- up recommended Social History Smoking Status: Current every day smoker tobacco type: smokeless tobacco Do You Dip or Chew Tobacco: Yes Hx Alcohol Use: No substance use type: does not use Physical Exam Vital Signs Last Vital Signs Temp 37.0 C 08/08/19 07:57 Pulse 62 08/08/19 07:57 Resp 18 08/08/19 07:57 BP 146/82 H 08/08/19 07:57 Pulse Ox 97 08/08/19 07:57 Testing Laboratory Results 08/08/19 05:18 08/08/19 05:18 PT 10.3 Seconds (9.0-12.0) 08/07/19 17:04 INR 1.0 (0.9-1.1) 08/07/19 17:04 APTT 22.7 Seconds (21.0-31.0) 08/07/19 17:04 Urine Color Yellow 08/07/19 17:55 Urine Appearance Clear (Clear) 08/07/19 17:55 Urine pH 5.0 (4.5-7.5) 08/07/19 17:55 Ur Specific [place] 1.011 (1.000-1.030) 08/07/19 17:55 Urine Protein Negative (Negative) 08/07/19 17:55 Urine Glucose (UA) Negative (Negative) 08/07/19 17:55 Urine Ketones Negative (Negative) 08/07/19 17:55 Urine Nitrite Negative (Negative) 08/07/19 17:55 Ur Leukocyte Esterase Negative (Negative) 08/07/19 17:55 Blood Type A Negative 08/07/19 17:04 Antibody Screen NEGATIVE 08/07/19 17:04 08/08/19 08/08/19 08/07/19 07:48 05:35 23:38 POC Glucose 146 H 135 H 128 H
--- NOTE | 2019-08-08 11:01 | History & Physical Report ---
Date of Service August 08, 2019 Assessment & Plan (1) GI bleed: stable for EGD/[place] History of Present Illness Chief Complaint: hx of polyps and GI bleeding Primary Care Provider: Chepe Navas DO pt with hx of polyps and GI bleeding for EGD/ Colonoscopy Allergies Allergy/AdvReac Type Severity Reaction Status Date / Time bee venom protein (honey bee) Allergy Severe ANAPHYLAXIS Verified 08/07/19 16:46 Home Medications Home Medications Medication Instructions Recorded Confirmed Type gemfibrozil 600 mg PO BID 08/07/19 08/07/19 History indomethacin 50 mg PO TID PRN 08/07/19 08/07/19 History metformin 1,000 mg PO BID 08/07/19 08/07/19 History multivitamin 1 tab PO DAILY 08/07/19 08/07/19 History omeprazole 20 mg PO DAILY 08/07/19 08/07/19 History Past Med/Surg History Medical History DM type 2 (diabetes mellitus, type 2) GERD (gastroesophageal reflux disease) Gout Hyperlipidemia Surgical History Hx of colonoscopy 10/2017 -diverticulosis throughout sigmoid colon, polyp removed from transverse colon with pathology showing tubovillous adenoma -one-year follow- up recommended Family History (Updated 08/07/19 @ 18:54 by DANILO Freeman) Father Heart disease Social History Preferred Language: Pashto Communication Ability: Effective Pastry Mixer Required: No Beliefs That Will Affect Care: None Current Living Situation: Alone Other Information That Helps Us Care for You: No Feels Safe at Home: Yes Safety Concerns: Feels Safe At This Time Smoking Status: Current every day smoker Tobacco Type: smokeless tobacco ; Do You Dip or Chew Tobacco: Yes ; Second Hand Exposure: No ; Tobacco Cessation Education Requested by Patient: No Hx Alcohol Use: No Physical Exam Constitutional: WD/WN, vitals as above Respiratory: normal respiratory effort, lungs clear to auscultation Cardiovascular: RRR, no murmur, no edema Gastrointestinal (Abdomen): normal bowel sounds, soft, nontender, no hepatosplenomegaly Results & Data Vital Signs (Past 12 Hours) Vital Signs Temp Pulse Pulse Resp BP BP BP 08/08/19 07:57 37.0 C 62 18 146/82 H 08/08/19 07:28 67 08/08/19 07:00 36.8 C 60 18 182/77 H 181/69 H 08/08/19 03:48 36.9 C 73 20 153/99 H 08/08/19 03:05 36.7 C 68 18 179/98 H 08/08/19 02:35 36.9 C 75 18 174/92 H 08/08/19 02:05 36.9 C 73 18 160/95 H 08/08/19 01:50 36.8 C 83 18 154/87 H 08/08/19 01:33 36.9 C 75 20 160/96 H 08/08/19 00:40 36.9 C 72 20 162/90 H 08/08/19 00:31 93 H 08/08/19 00:05 36.7 C 76 20 152/92 H 08/07/19 23:34 36.7 C 75 18 155/92 H 08/07/19 23:04 36.7 C 75 18 167/85 H Pulse Ox 08/08/19 07:57 97 08/08/19 07:28 08/08/19 07:00 95 08/08/19 03:48 98 08/08/19 03:05 97 08/08/19 02:35 97 08/08/19 02:05 97 08/08/19 01:50 96 08/08/19 01:33 96 08/08/19 00:40 97 08/08/19 00:31 08/08/19 00:05 98 08/07/19 23:34 98 08/07/19 23:04 98 Code Status & VTE Plan VTE Prophylaxis Plan VTE Prophylaxis will be ordered: Yes
[2019-08-08] MEDS ORDERED: ATROPINE SULFATE 0.1 MG/ML 10ML SYR IV PRN (11:03)
[2019-08-08] MEDS ORDERED: ePHEDrine sulfate 50 MG/ML AMP IV PRN (11:03)
--- NOTE | 2019-08-08 11:49 | GI REPORT ---
Patient Name: Mehdi Wisdom Procedure Date: 08/08/2019 10:54 AM Date of : 1965 Admit Type: Inpatient Age: 54 Gender: Male Attending MD: Charles Candelario MD Procedure: Upper GI endoscopy Providers: Charles Candelario MD Referring MD: Hai Foote d.o., Do Indications: Acute post hemorrhagic anemia Medicines: See the Anesthesia note for documentation of the administered medications Complications: No immediate complications. Estimated Blood Loss: Estimated blood loss: none. Procedure: Pre-Anesthesia Assessment: - Prior to the procedure, a History and Physical was performed, and patient medications, allergies and sensitivities were reviewed. The patient's tolerance of previous anesthesia was reviewed. - The risks and benefits of the procedure and the sedation options and risks were discussed with the patient. All questions were answered and informed consent was obtained. - Patient identification and proposed procedure were verified prior to the procedure by the physician and the nurse. The procedure was verified in the pre-procedure area. - Pre-procedure physical examination revealed no contraindications to sedation. - After reviewing the risks and benefits, the patient was deemed in satisfactory condition to undergo the procedure. After obtaining informed consent, the endoscope was passed under direct vision. Throughout the procedure, the patient's blood pressure, pulse, and oxygen saturations were monitored continuously. The Endoscope was introduced through the mouth, and advanced to the third part of duodenum. The upper GI endoscopy was accomplished without difficulty. The patient tolerated the procedure well. Findings: The esophagus was normal. The stomach was normal. The examined duodenum was normal. The cardia and gastric fundus were normal on retroflexion. Impression: - Normal esophagus. - Normal stomach. - Normal examined duodenum. - No specimens collected. Recommendation: - Perform a colonoscopy today. Charles Candelario M.D. Charles Candelario MD 08/08/2019 11:49:24 AM This report has been signed electronically. Note Initiated On: 08/08/2019 10:54 AM Number of Addenda: 0 I attest to the content of the Intraoperative Record and orders documented therein, exceptions below {[id number]}
--- NOTE | 2019-08-08 11:51 | GI REPORT ---
Patient Name: Mehdi Wisdom Procedure Date: 08/08/2019 10:56 AM Date of : 1965 Admit Type: Inpatient Age: 54 Gender: Male Attending MD: Charles Candelario MD Procedure: Colonoscopy Providers: Charles Candelario MD Referring MD: Hai Foote d.o., Do Indications: Acute post hemorrhagic anemia, Personal history of colonic polyps Medicines: See the Anesthesia note for documentation of the administered medications Complications: No immediate complications. Estimated Blood Loss: Estimated blood loss: none. Procedure: Pre-Anesthesia Assessment: - See the other procedure note for documentation of the pre-procedure assessment. After I obtained informed consent, the scope was passed under direct vision. Throughout the procedure, the patient's blood pressure, pulse, and oxygen saturations were monitored continuously. The Colonoscope was introduced through the anus and advanced to the terminal ileum, with identification of the appendiceal orifice and IC valve. The colonoscopy was performed without difficulty. The patient tolerated the procedure well. The quality of the bowel preparation was good. Findings: The perianal and digital rectal examinations were normal. The terminal ileum appeared normal. The entire examined colon appeared normal on direct and retroflexion views. Impression: - The examined portion of the ileum was normal. - The entire examined colon is normal on direct and retroflexion views. - No specimens collected. Recommendation: - Return patient to [facility] for [facility] care. - Consider out patient small bowel capsule study. Charles Candelario M.D. Charles Candelario MD 08/08/2019 11:50:49 AM This report has been signed electronically. Note Initiated On: 08/08/2019 10:56 AM Number of Addenda: 0 I attest to the content of the Intraoperative Record and orders documented therein, exceptions below {[id number]}
--- NOTE | 2019-08-08 12:47 | Discharge Summary ---
Date of Service August 08, 2019 Admission HPI Per Admitting Provider pt with hx of polyps and GI bleeding for EGD/ Colonoscopy Admission Exam Per Admitting Provider Constitutional: WD/WN, vitals as above Eyes: PERRL, conjunctivae normal, anicteric sclerae ENMT: external ear and nose normal, oropharynx normal Respiratory: normal respiratory effort, lungs clear to auscultation Cardiovascular: Rate/Rhythm: regular rhythm and + tachycardic (Heart rate low 100s) Vessels: normal peripheral pulses Extremities: no edema Gastrointestinal (Abdomen): normal bowel sounds, soft, nontender, no hepatosplenomegaly Musculoskeletal: no cyanosis or clubbing, extremities motor strength 5/5 Skin: no rashes, warm and dry + pallor Neurologic: PERRL, EOMI, accommodation nl, no face palsy, no dysarthria Psychiatric: A+Ox3, euthymic affect Principal Diagnosis Melena Low Hb GI Bleed Discharge Exam Physical Exam Gen-AAO x 3, NAD, Afebrile Head-NCAT, EOMI, PERRLA, Anicteric Sclera, No Posterior Pharyngeal Erythema Neck-Supple, No JVD, No Thyromegaly, No Masses, No LAD, No Bruits Lungs-Clear to Auscultation Bilaterally, No Rales, No Rhonchi, No Wheezing, No Crepitus Chest-No S4, +S1, +S2, No S3, No Murmurs, No Rubs, No Gallops, No Ectopy Abdomen-Soft, Bowel Sounds Present, Non Tender, Non Distended, No Hepatomegaly, No Splenomegaly, No Palpable Masses, No Rebound, No Rigidity, No Guarding Musculoskeletal-Full Range of Motion Bilaterally, No CVAT Extremities-No Cyanosis, No Clubbing, No Edema Nuero-Cranial Nerves II-XII grossly intact, Motor WNL, DTRs WNL, Strength WNL, Non Focal Psych-Normal Mood Discharge Data Allergies Allergy/AdvReac Type Severity Reaction Status Date / Time bee venom protein (honey bee) Allergy Severe ANAPHYLAXIS Verified 08/07/19 16:46 Consultations 08/07/19 17:49 ED Decision to Admit Stat 08/07/19 20:02 Consult Gastroenterology Routine Procedures Performed Operation Date: 08/08/19 16:00 Actual Procedures p Esophagogastroduodenoscopy - Charles Candelario s Colonoscopy - Charles Candelario Ordered Studies 08/07/19 16:22 CT abd pelvis IV con only Stat Current Diagnoses Anemia, unspecified (08/07/19) Type 2 diabetes mellitus without complications (08/07/19) Gastrointestinal hemorrhage, unspecified (08/07/19) Encounter for other preprocedural examination (08/07/19) Encounter for prophylactic measures, unspecified (08/07/19) Allergies bee venom protein (honey bee) Allergy (Severe, Verified 08/07/19 16:46) ANAPHYLAXIS Height/Weight/Isolation Height 6 ft Weight 108 kg Chemistry 08/07/19 08/08/19 17:04 05:18 Sodium 136 139 Potassium 3.6 3.4 L Chloride 105 108 H Carbon Dioxide 22 26 Anion Gap 9.0 5.0 BUN 13 9 Creatinine 1.20 1.02 Glucose 184 H 127 H Urinalysis 08/07/19 17:55 Urine Color Yellow Urine Appearance Clear Urine pH 5.0 Ur Specific [place] 1.011 Urine Protein Negative Urine Glucose (UA) Negative Urine Ketones Negative Urine Blood Negative Urine Nitrite Negative Urine Bilirubin Negative Hospital Course (1) Anemia: (2) GI bleed: EGD/Colon negative-DC home and f/u OP for Capsule endoscopy (3) DM type 2 (diabetes mellitus, type 2): -Hgb A1c 7.0 08/01/19 -Hold metformin and utilize NovoLog per protocol while hospitalized (4) DVT prophylaxis: Labs checked Total Time Total Time Spent Total Time Spent (In Minutes): 40 mins Total Time Includes: Examination of the Patient, Discharge Planning, Medication Reconciliation and Communication With Other Providers Discharge Plan Discharge Items Patient Disposition: Home - Self-Care Reason For Visit: GI BLEED ANEMIA Discharge Diagnosis: GI Bleed Melena Condition on Discharge: Good Activity: Resume your previous activity Lifting: Gradually increase as tolerated Bathing: No limitations Sexual Activity: When tolerated Exercise/Sports: Gradually increase as tolerated Driving/Machine Use: No limitations Weightbearing: Full weightbearing Non-emergency contact: Primary Care Provider and Rigging Helper Call non-emergency contact if: you have any medication questions Follow-up/Referrals: Chepe Navas DO [Primary Care Provider] - Charles Candelario [Physician] - (in 3-4 weeks) Diet: Regular Addtl Attending Provider Instructions: None Pending Studies at Discharge: No Stand-Alone Forms: [email or web address], Smoking Cessation Medications and DC Order Prescriptions: Continued multivitamin Tablet 1 tab PO DAILY RF: 0 gemfibrozil 600 mg Tablet 600 mg PO BID RF: 0 omeprazole 20 mg capsule,delayed release(DR/EC) 20 mg PO DAILY RF: 0 Discontinued indomethacin 50 mg capsule 50 mg PO TID PRN (Reason: Pain) RF: 0 No Action metformin 1,000 mg tablet 1,000 mg PO BID RF: 0 Discharge Orders: Discharge Order (Routine); Ordered 08/08/19 Ordered By: Hai Griffith Admission Data Admit Date/Time: 08/07/19 18:24 Attending Provider: Hai Griffith Admit Provider: Destiney Oleary Primary Care Provider: Chepe Navas Other Providers: Destiney Oleary ; Charles Candelario
--- NOTE | 2019-08-08 14:12 | Electrocardiogram Report ---
Test Reason : Blood Pressure : / mmHG Vent. Rate : 100 BPM Atrial Rate : 100 BPM P-R Int : 152 ms QRS Dur : 082 ms QT Int : 346 ms P-R-T Axes : -27 -07 -09 degrees QTc Int : 446 ms Normal sinus rhythm Normal ECG No previous ECGs available Confirmed by Jose Lentz ([id number]) on 08/08/2019 2:11:33 PM Referred By: Chepe Navas Confirmed By:Jose Lentz
--- NOTE | 2019-08-08 15:02 | Anesthesiology Progress Note ---
Date of Service August 08, 2019 Anesthesia Post Procedure Vital Signs Vital Signs: Temp Pulse Pulse Resp BP BP BP 08/08/19 13:34 36.3 C L 63 18 149/84 H 181/69 H 08/08/19 12:35 36.3 C L 63 18 149/84 H 08/08/19 12:17 79 12 124/91 08/08/19 11:59 65 12 130/84 08/08/19 11:45 76 10 L 118/78 08/08/19 07:57 37.0 C 62 18 146/82 H 08/08/19 07:28 67 08/08/19 07:00 36.8 C 60 18 182/77 H 181/69 H 08/08/19 03:48 36.9 C 73 20 153/99 H 08/08/19 03:05 36.7 C 68 18 179/98 H 08/08/19 02:35 36.9 C 75 18 174/92 H 08/08/19 02:05 36.9 C 73 18 160/95 H 08/08/19 01:50 36.8 C 83 18 154/87 H 08/08/19 01:33 36.9 C 75 20 160/96 H 08/08/19 00:40 36.9 C 72 20 162/90 H 08/08/19 00:31 93 H 08/08/19 00:05 36.7 C 76 20 152/92 H 08/07/19 23:34 36.7 C 75 18 155/92 H 08/07/19 23:04 36.7 C 75 18 167/85 H 08/07/19 22:50 36.9 C 78 20 152/82 H 08/07/19 22:33 36.8 C 81 18 143/85 H 08/07/19 20:13 90 08/07/19 19:54 37 C 88 20 161/94 H 08/07/19 17:53 102 H 22 164/92 H 08/07/19 17:52 102 H 22 08/07/19 16:15 37.3 C 101 H 16 148/93 H Pulse Ox 08/08/19 13:34 97 08/08/19 12:35 97 08/08/19 12:17 98 08/08/19 11:59 98 08/08/19 11:45 98 08/08/19 07:57 97 08/08/19 07:28 08/08/19 07:00 95 08/08/19 03:48 98 08/08/19 03:05 97 08/08/19 02:35 97 08/08/19 02:05 97 08/08/19 01:50 96 08/08/19 01:33 96 08/08/19 00:40 97 08/08/19 00:31 08/08/19 00:05 98 08/07/19 23:34 98 08/07/19 23:04 98 08/07/19 22:50 97 08/07/19 22:33 96 08/07/19 20:13 08/07/19 19:54 96 08/07/19 17:53 96 08/07/19 17:52 96 08/07/19 16:15 99 Transfer of Care Handoff Completed per policy Notes Mental Status: alert / awake / arousable Patient Amnestic to Procedure: Yes Nausea / Vomiting: adequately controlled Pain: adequately controlled Airway Patency, RR, SpO2: stable & adequate BP & HR: stable & adequate Hydration State: stable & adequate Anesthetic Complications: no major complications apparent and Pt Satisfied with anesthetic care
== END 2019-08-08 14:36 | disposition home or self-care (01) | DRG 378 ==
LOC: ED 16:09 → 2N 18:24 → INTOOBSV 18:24 → SUATTDRO 18:24 → 2N 19:35